=== PATIENT | female | born 1995 | race Caucasian/White ===

== ENCOUNTER 2018-06-12 08:53 | Emergency (ER) | payer OTHER ==
[2018-06-12] MEDS ORDERED: Acetaminophen/HYDROcodone 325-5 MG Tab ONE (09:36)
[2018-06-12] MEDS ORDERED: Amoxicillin/Clavulanate K 875-125 MG Tab ONE (09:36)
== END 2018-06-12 09:40 | disposition home or self-care (01) ==
LOC: DL.ED 08:53
DX: H66.91 Otitis media, unspecified, right ear (principal)
CPT/HCPCS: 99282

== ENCOUNTER 2023-02-18 06:14 | Emergency (ER) | payer OTHER, MEDICAID ==
[2023-02-18] MEDS ORDERED: fentaNYL 100 MCG/2 ML SDV ONE (06:40)
[2023-02-18] MEDS: Sodium Chloride 0.9% 10 ML Syringe FLUSH PRN ×2 (06:57→07:05)
[2023-02-18] MEDS ORDERED: Naloxone 2 MG/2 ML Syringe IVPUSH PRN (07:01)
[2023-02-18] MEDS ORDERED: fentaNYL 100 MCG/2 ML SDV IVPUSH ONE (07:01)
[2023-02-18] MEDS ORDERED: Lactated Ringers 1,000 ML IV ONE (07:01)
[2023-02-18 07:04] LABS: BASOPHILS PERCENT AUTO 0.1 % (0.0-1.0); EOSINOPHILS PERCENT AUTO 0.1 % (1.0-3.0); HEMOGLOBIN 12.7 g/dL (12.0-16.0); LYMPHOCYTES PERCENT AUTO 18.2 % (20.5-50.1); MEAN CORPUSCULAR HEMOGLOBIN 27.9 pg (27.0-34.0); MEAN CORPUSCULAR HGB CONC 33.4 g/dL (33.0-35.0); MEAN CORPUSCULAR VOLUME 83.5 fL (80-100); MONOCYTES PERCENT AUTO 7.7 % (2-8); NEUTROPHILS PERCENT AUTO 73.9 % (42.2-75.2); PLATELET COUNT,PLT 257 10^3/uL (150-450); RED BLOOD CELL COUNT 4.55 10^6/uL (4.2-5.4); WHITE BLOOD CELL COUNT,WBC 7.3 10^3/uL (5.0-10.0)
[2023-02-18] MEDS ORDERED: Metoprolol Tartrate 5 MG/5 ML SDV IVPUSH ONE (07:07)
[2023-02-18 07:22] LABS: HCG QUALITATIVE,SERUM NEGATIVE (NEGATIVE)
[2023-02-18 07:31] LABS: ALANINE AMINOTRANSFERASE,ALT 75 U/L (14-59); ALBUMIN 3.1 g/dL (3.4-5.0); ALKALINE PHOSPHATASE 65 U/L (46-116); ANION GAP 12.6 mEq/L (7-13); ASPARTATE AMNIOTRANSFERASE,AST 76 U/L (15-37); BILIRUBIN TOTAL 0.3 mg/dL (0.2-1.0); BLOOD UREA NITROGEN,BUN 13 mg/dL (7-18); BUN/CREATININE RATIO 13.5 (No establ ref range); C-REACTIVE PROTEIN 2.91 ng/dL (<=0.30); CALCIUM 8.2 mg/dL (8.5-10.1); CARBON DIOXIDE,CO2 24 mmol/L (21-32); CHLORIDE,CL 102 mmol/L (98-107); CREATININE 0.96 mg/dL (0.55-1.02); EST CRCL DRUG DOSING (CG) 78.51 mL/min; GLUCOSE RANDOM 149 mg/dL (70-99); MAGNESIUM 1.6 mg/dL (1.8-2.4); POTASSIUM,K 3.6 mmol/L (3.5-5.1); PROTEIN TOTAL,TP 7.3 g/dL (6.4-8.2); PROTHROMBIN TIME 9.8 SEC (9.0-12.0); PTT,PARTIAL THROMBOPLSTIN TIME 31.2 SEC (22.0-34.0); SODIUM,NA 135 mmol/L (136-145); TSH ULTRASENSITIVE 2.24 uIU/mL (0.36-3.74)
[2023-02-18 07:33] LABS: A/G RATIO 0.74; ESTIMATED GFR 83 mL/min (>=60); ETHANOL BLOOD MEDICAL < 3 mg/dL (0)
[2023-02-18] MEDS ORDERED: Magnesium Sulfate/Water 2 GM in Premix Bag 1 BAG IV ONE ×2 (07:33→07:34)
[2023-02-18] MEDS ORDERED: Metoprolol Succinate 50 MG Tab.ER PO ONE (08:19)
== END 2023-02-18 12:08 | disposition home or self-care (01) ==
LOC: DL.ED 06:14
DX: I47.10 Supraventricular tachycardia, unspecified (principal); E66.9 Obesity, unspecified; Z68.42 Body mass index [BMI] 45.0-49.9, adult
CPT/HCPCS: 36415; 71045; 80053; 80307; 83735; 84443; 84484; 84703; 85025; 85610; 85730; 86140; 92960; 93005; 93010; 96361; 96365; 96366; 96375; 99284; 99285-25; A9270-GY; J3010; J3475; J3490; J7120

== ENCOUNTER 2023-07-22 18:43 | Emergency (ER) | payer OTHER, MEDICAID ==
[2023-07-22] MEDS: Sodium Chloride 0.9% 1,000 ML IV SCH (18:59)
[2023-07-22] MEDS: Adenosine 6 MG/2 ML SDV IVPUSH ONE (19:00)
[2023-07-22] MEDS: Adenosine 12 MG/4 ML SDV ONE (19:17)
[2023-07-22 19:39] LABS: BASOPHILS PERCENT AUTO 0.3 % (0.0-1.0); EOSINOPHILS PERCENT AUTO 2.7 % (1.0-3.0); HEMATOCRIT 38.1 % (37.0-47.0); HEMOGLOBIN 12.8 g/dL (12.0-16.0); LYMPHOCYTES PERCENT AUTO 34.3 % (20.5-50.1); MEAN CORPUSCULAR HEMOGLOBIN 27.6 pg (27.0-34.0); MEAN CORPUSCULAR HGB CONC 33.6 g/dL (33.0-35.0); MEAN CORPUSCULAR VOLUME 82.3 fL (80-100); MONOCYTES PERCENT AUTO 8.6 % (2-8); NEUTROPHILS PERCENT AUTO 54.1 % (42.2-75.2); PLATELET COUNT,PLT 285 10^3/uL (150-450); RED BLOOD CELL COUNT 4.63 10^6/uL (4.2-5.4); WHITE BLOOD CELL COUNT,WBC 9.3 10^3/uL (5.0-10.0)
[2023-07-22 19:55] LABS: ANION GAP 13.4 mEq/L (7-13); CALCIUM 8.9 mg/dL (8.5-10.1); CREATININE 0.83 mg/dL (0.55-1.02); EST CRCL DRUG DOSING (CG) 89.99 mL/min; MAGNESIUM 1.9 mg/dL (1.8-2.4); POTASSIUM,K 3.4 mmol/L (3.5-5.1)
[2023-07-22] MEDS: Potassium Chloride 10 MEQ Tab.ER PO ONE (20:27)
== END 2023-07-22 20:37 | disposition home or self-care (01) ==
LOC: DL.ED 18:43
DX: I47.10 Supraventricular tachycardia, unspecified (principal); E66.9 Obesity, unspecified; Z68.43 Body mass index [BMI] 50.0-59.9, adult; Z79.2 Long term (current) use of antibiotics; Z79.899 Other long term (current) drug therapy
CPT/HCPCS: 36415; 80048; 83735; 85025; 93005; 93010; 96374; 99284; 99285; A9270; J0153; J7030